=== PATIENT | male | born 1995 | race Caucasian/White ===

== ENCOUNTER 2020-04-15 14:39 | Emergency (ER) | payer MEDICARE ==
[2020-04-15 14:45] VITALS: TEMP 97.6
--- NOTE | 2020-04-15 15:16 | ED ---
General Adult HPI - General Chief complaint: GI Bleed Stated complaint: head/back/hip pain Time Seen by Provider: 04/15/20 14:58 Source: patient Mode of arrival: wheelchair Limitations: no limitations - History of Present Illness Initial comments: Dictation was produced using [employer] dictation software. please excuse any grammatical, word or spelling errors. This patient was cared for during a federal and state declared state of emergency secondary to Covid 19 Chief Complaint: 24-year-old male presents to the emergency Department with multiple complaints. He states that he was here for GI bleeding and back pain History of Present Illness: 24-year-old male who has past medical history of ventricular peritoneal shunt placement. Patient states that he had a discussion with his primary care physician told him to come to the emergency department to be evaluated. Patient states that he is here because he's been having on and o ff back pain. Patient states he has history of chronic back pain and has been having back strains on and off for the last several months. Patient states that he wears a belt to try to help with his back symptoms. 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 Patient states he also has a GI bleed. He reports that he is not worried about it. He has history of chronic GI bleeds. States that he presents from smoking. Abdominal pain. Patient states back pain is his left low back were swelling. All his primary care physician and told him to come to the emergency department for x-rays. Patient denies any recent trauma. Denies any rectal pain The ROS documented in this emergency department record has been reviewed and confirmed by me. Those systems with pertinent positive or negative responses have been documented in the HPI. All other systems are other negative and/or noncontributory. PHYSICAL EXAM: General Impression: Alert and oriented x3, not in acute distress HEENT: Normocephalic atraumatic, extra-ocular movements intact, pupils equal and reactive to light bilaterally, mucous membranes moist. Cardiovascular: Heart regular rate and rhythm Chest: Able to complete full sentences, no retractions, no tachypnea Abdomen: abdomen soft, non-tender, non-distended, no organomegaly Musculoskeletal: Pulses present and equal in all extremities, no peripheral edema Motor: no focal deficits noted Neurological: CN II-XII grossly intact, no focal motor or sensory deficits noted Skin: Intact with no visualized rashes Psych: Normal affect and mood Rectal Exam: No gross blood, no fissures or hemorrhoids ED course: 24-year-old male presents with instructions by primary care physician of the emergency department for lumbar spine x-rays. Patient reports chronic back pain. Denies any recent trauma. Patient also has secondary complaint of GI bleeding which she also reports is chronic. Vital signs upon arrival are within acceptable limits. Physical examination is benign. Patient's well- appearing at bedside. Patient refusing blood work. States he only wants x-rays. Stool occult blood was sent. Stool occult blood is positive.. Is told that he does have blood in his stool. States that is chronic however there is some concern that perhaps he could have chronic bleed which could result anemia. Patient still refusing blood draws. X-ray shows no acute processes. Patient reevaluated at bedside at 4:10 PM in stable medical condition. Patient is agreeable for discharge home. Advised follow up with primary care physician. Patient also given referral to GI doctor. - Related Data Previous Rx's Medication Instructions Recorded Omeprazole 40 mg PO DAILY #24 capsule. 04/15/20 Allergies Allergy/AdvReac Type Severity Reaction Status Date / Time No Known Allergies Allergy Verified 04/15/20 15:49 Review of Systems ROS Statement: Those systems with pertinent positive or pertinent negative responses have been documented in the HPI. ROS Other: All systems not noted in ROS Statement are negative. 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 Smoking Status: Current every day smoker Past Alcohol Use History: Occasional Past Drug Use History: Marijuana General Exam Limitations: no limitations Course Vital Signs 04/15/20 14:40 Temperature 97.6 F Pulse Rate 74 Respiratory 16 Rate Blood Pressure 129/80 O2 Sat by Pulse 97 Oximetry Medical Decision Making - Lab Data Lab Results 04/15/20 Range/Units 15:20 Stool Occult Blood Positive (Negative) Disposition Clinical Impression: GI bleed, Back pain Disposition: HOME SELF-CARE Condition: Fair Instructions (If sedation given, give patient instructions): Gastrointestinal Bleeding (ED), Low Back Strain (ED) Additional Instructions: You have signs of GI bleed on stool occult blood test. He refused blood so we are unable to determine if you are having anemia. At this point it sounds unlikely given you're stable vitals and normal physical exam. It is important that he follow up with her primary care doctor. Please seek medical attention if you develops symptoms involving but not limited to pallor to the skin, lightheadedness or generalized weakness. These could be signs of anemia. Prescriptions: Omeprazole 40 mg PO DAILY #24 capsule.dr Is patient prescribed a controlled substance at d/c from ED?: No Referrals: Salazar Osman MD [STAFF PHYSICIAN] - 1-2 days Time of Disposition: 16:11
--- NOTE | 2020-04-15 15:58 | XR ---
EXAMINATION TYPE: XR lumbar spine 2 or 3V DATE OF EXAM: 04/15/2020 COMPARISON: None HISTORY: Chronic pain TECHNIQUE: 3 view lumbar spine FINDINGS: There are 5 lumbar-type vertebral bodies. Pedicles are intact. Disc heights are preserved. Vertebral body heights are preserved. Alignment is normal. IMPRESSION: 1. Normal three-view lumbar spine
[2020-04-15] MEDS ORDERED: PANTOPRAZOLE 40 MG TABLET PO STA (16:10)
[2020-04-15 16:20] VITALS: BP 124/79; PULSE 63; RESP 18
== END 2020-04-15 16:19 | disposition home or self-care (01) ==
LOC: EC 14:39
DX: K92.2 Gastrointestinal hemorrhage, unspecified (principal); F17.200 Nicotine dependence, unspecified, uncomplicated; F12.90 Cannabis use, unspecified, uncomplicated
CPT/HCPCS: 36415; 72100; 82272; 99283